=== PATIENT | male | born 1950 | race Two or more races ===

== ENCOUNTER 2019-06-09 05:47 | Emergency (ER) | payer OTHER ==
[~2019-06-09] VITALS: Ht 162.6 cm; Wt 90.7 kg
[~2019-06-09 05:47] MED LIST: ZOCOR20 MG
[2019-06-09] MEDS ORDERED: METFORMIN HCL500 M3 (05:53)
[2019-06-09] MEDS ORDERED: AVAPRO150 MG (05:53)
[2019-06-09] MEDS ORDERED: MUCINEX1200 MG PO (13:22)
[2019-06-09] MEDS ORDERED: PROMETH-CODEIN 65 ML PO (13:22)
== END 2019-06-09 13:40 | disposition home or self-care (01) ==
LOC: ER 05:47
DX: R05 Cough (principal)

== ENCOUNTER 2020-04-25 15:08 | Outpatient (CLI) | payer OTHER ==
[~2020-04-25 15:08] MED LIST changes: +AVAPRO150 MG; +METFORMIN HCL500 M3; +MUCINEX1200 MG PO; +PROMETH-CODEIN 65 ML PO
== END 2020-04-25 15:17 | disposition home or self-care (01) ==
LOC: LAB 15:08
DX: Z20.828 Contact with and (suspected) exposure to other viral communicable diseases (principal)

== ENCOUNTER 2023-12-02 07:16 | Emergency (ER) | payer OTHER ==
[~2023-12-02] VITALS: Ht 157.5 cm; Wt 88.9 kg
[2023-12-02] MEDS ORDERED: CRESTOR5 MG PO (07:45)
[2023-12-02] MEDS ORDERED: TAMS0.4C PO (07:46)
[2023-12-02] MEDS ORDERED: KETOROLAC TROMETHAMINE 60 MG VIAL IM STA (08:13)
[2023-12-02] MEDS ORDERED: ORPHENADRINE CITRATE 30 MG/ML AMPUL IM STA (08:13)
[2023-12-02] MEDS ORDERED: DEXAMETHASONE SODIUM PHOSPHATE 4 MG/ML VIAL IM STA (08:13)
[2023-12-02] MEDS ORDERED: ORPHENADRINE CITRATE 30 MG/ML AMPUL ONE (08:38)
[2023-12-02] MEDS ORDERED: KETOROLAC TROMETHAMINE 60 MG VIAL IM ONE (08:39)
[2023-12-02] MEDS ORDERED: DEXAMETHASONE SODIUM PHOSPHATE 4 MG/ML VIAL ONE (08:39)
[2023-12-02] MEDS ORDERED: ACETAMINOPHEN650 M2 PO (09:41)
[2023-12-02] MEDS ORDERED: DICLOFENAC POTA50 MG PO (09:41)
[2023-12-02] MEDS ORDERED: CYCLOBENZAPRINE5 MG PO (09:41)
== END 2023-12-02 09:58 | disposition home or self-care (01) ==
LOC: ER 07:17
DX: M25.511 Pain in right shoulder (principal); T14.90XA Injury, unspecified, initial encounter; I10 Essential (primary) hypertension; E11.9 Type 2 diabetes mellitus without complications; Z79.84 Long term (current) use of oral hypoglycemic drugs
CPT/HCPCS: 72040; 73010; 73030; 96372; 99283; J1100; J1885; J2360